=== PATIENT | female | born 1995 | race Caucasian/White ===

== ENCOUNTER 2020-12-09 02:01 | Day surgery (SDC) | payer BC, SELFPAY ==
[2020-12-09] VITALS (15 sets, daily range): BP systolic 108–127; BP diastolic 52–80; PULSE 64–93; RESP 14–18; TEMP 36.3–37.2; O2SAT 96–99; BMI 20.6
--- NOTE | ~2020-12-09 | CT_ITS ---
EXAMINATION: CT ABDOMEN AND PELVIS WITH CONTRAST CLINICAL INFORMATION: Right lower quadrant pain COMPARISON: None TECHNIQUE: Multidetector volumetric images were obtained from the superior aspect of the liver through the pubic symphysis following administration 85 mL of Omnipaque 350 intravenous contrast. Sagittal and coronal reformatted images were obtained on the technologist's workstation. Oral contrast: No This CT examination was performed using dose optimization techniques as appropriate, variously including the following: *Automated exposure control *Adjustment of mA and/or kV according to patient size (this includes techniques or standardized protocols for targeted exams where dose is matched to indication/reason for exam; i.e. extremities or head) *Use of iterative reconstruction technique DLP: 227 mGy-cm FINDINGS: LUNG BASES: The visualized lung bases are unremarkable. LIVER, GALLBLADDER, AND BILIARY TREE: The liver is normal in size, shape, and attenuation. No focal hepatic lesion or biliary ductal dilatation is present. The gallbladder is unremarkable with no evidence of radiopaque gallstones, gallbladder wall thickening, or obvious pericholecystic inflammatory changes. PANCREAS: Unremarkable. SPLEEN: Mildly enlarged, measuring approximately 14 cm in length. ADRENAL GLANDS: Unremarkable. KIDNEYS AND URETERS: The kidneys are normal in size, shape, and attenuation. No hydronephrosis, hydroureter, or obstructing calculi seen. No perinephric stranding. BLADDER: Unremarkable. GASTROINTESTINAL TRACT: The small and large bowel are unremarkable. Fluid-filled structure in the right lower quadrant also containing calcifications is most suggestive of a dilated appendix containing appendicoliths, such as seen on coronal images 28-35. Limited assessment for surrounding inflammatory change given the lack of intra-abdominal fat. No free air is seen. ABDOMINAL WALL: No significant hernia is appreciated. LYMPH NODES: Normal. VASCULAR: Unremarkable. PELVIC VISCERA: IUD is present. Small amount of pelvic free fluid is noted posteriorly. Cystic structure in the right adnexa measures 2.7 cm in diameter, suggestive of an ovarian cyst. OSSEOUS STRUCTURES: Unremarkable. CT/CT abdomen pelvis w con IMPRESSION: 1. Fluid-filled structure in the right lower quadrant which also contains calcification is most suggestive of a dilated appendix. In the setting of right lower quadrant pain, appearance is concerning for acute appendicitis. 2. Suspect right ovarian cyst measuring 2.8 cm. Small amount of pelvic free fluid. 3. Mild splenomegaly.
--- NOTE | 2020-12-09 02:56 | PC.NURSE ---
PT TO ROOM #2 WITH C/O LOWER ABD PAIN. IV PLACED TO LAC, LABS DRAWN TO LAB. PT UP TO RESTROOM FOR URINE SAMPLE TO LAB. PT TOLERATED WELL AND DENIES ANY NAUSEA AT THIS TIME. PT ALERT, RESPIRATIONS EASY, N/L. SKIN W/D. AWAITING FOR FURTHER ORDERS.
[2020-12-09 02:57] LABS: MANUAL DIFF FLAG NO
[2020-12-09 03:03] LABS: Appearance Urine HAZY; Basophils Percent Auto 0.1 % (0-2); Color Urine YELLOW; Eosinophils Percent Auto 0.1 % (0-4); Glucose Urine UA NEG (NEG); Hematocrit 34.2 % (37-47); Hemoglobin 11.9 g/dl (12.0-16.0); Imm Gran Abs Auto 0.05 X10*3/uL (0.00-0.03); Imm Gran Pct Auto 0.4 % (0.0-0.4); Leukocyte Esterase Urine NEG (NEG); Lymphocytes Absolute Auto 1.2 X10*3/uL (1.2-4.9); Lymphocytes Percent Auto 9.3 % (20-40); Mean Corpuscular HGB Conc 34.8 g/dl (31.0-35.0); Mean Corpuscular Hemoglobin 30.7 pg (27.0-33.0); Mean Corpuscular Volume 88.4 fL (80-98); Monocytes Percent Auto 7.8 % (2-11); Neutrophils Absolute Auto 10.9 X10*3/uL (2.0-8.3); Neutrophils Percent Auto 82.3 % (45-73); Nitrite Urine NEG (NEG); Platelet Count 159 X10*3/uL (160-400); Red Blood Count 3.87 X10*6/uL (4.20-5.50); Red Cell Distribution Width 12.4 % (11.0-16.0); Specific Gravity - Urine >= 1.030 (1.005-1.025); Urine Blood NEG (NEG); Urine Ketones 5 MG/DL (NEG); Urine Protein TRACE MG/DL (NEG-TRACE); White Blood Count 13.3 X10*3/uL (4.8-10.8)
[2020-12-09 03:08] LABS: UPreg QC Valid YES; Urine Pregnancy NEGATIVE (NEGATIVE)
[2020-12-09 03:20] LABS: Alanine Aminotransferase 11 U/L (0-31); Albumin Level 4.4 g/dL (3.5-5.0); Alkaline Phosphatase 50 U/L (39-117); Anion Gap 13 (12-20); Aspartate Amino Transferase 14 U/L (5-31); Bilirubin Total 0.3 mg/dL (0.0-1.0); Blood Urea Nitrogen 11 mg/dL (9-16); Calcium 8.9 mg/dL (8.4-10.2); Carbon Dioxide 22 mmol/L (22-29); Chloride 107 mmol/L (96-108); Creatinine Clr Calc Pharmacy 99.1; Estimated Glomerular Filt Rate > 60; Glucose Random 105 mg/dL (60-115); Potassium 3.3 mmol/L (3.3-5.1); Sodium 139 mmol/L (135-145); Total Protein 6.6 g/dL (6.5-8.0)
--- NOTE | 2020-12-09 03:45 | PC.NURSE ---
PT TO CT IN STRETCHER.
[2020-12-09] MEDS: 0.9 % Sodium Chloride 1,000 ML 999 ML IV (03:52)
--- NOTE | 2020-12-09 03:53 | ED_ITS ---
HPI - Abdominal Pain General Chief Complaint: Abdominal Pain Stated Complaint: Abd pain Time Seen by Provider: 12/09/20 03:46 Source: patient Mode of arrival: ambulatory History of Present Illness HPI narrative: 25-year-old female with presentation for cough and sore throat last week and now presents with onset of nausea and vomiting with a few episodes of diarrhea yesterday with right lower quadrant/PT suprapubic pain and denies any urinary pain/burning/frequency. Patient reports chills but denies any fevers. Related Data Allergies Allergy/AdvReac Type Severity Reaction Status Date / Time No Known Allergies Allergy Verified 12/09/20 02:02 Review of Systems Review of Systems Pertinent positives and negatives as stated in HPI 10 point review of systems is otherwise negative. Physical Exam Vital Signs: Vital Signs: Last Vital Signs Temp 98.4 F 12/09/20 04:43 Pulse 76 12/09/20 06:00 Resp 18 12/09/20 06:00 BP 118/78 12/09/20 06:00 Pulse Ox 99 12/09/20 06:00 Body Mass Index 20.6 VITAL SIGNS: Reviewed. GENERAL: Well developed, well nourished, in no acute distress. HEAD: Normocephalic/atraumatic EYES: PERRLA, EOMI EARS: Ext canals without abnormality NOSE: Nares patent bilateral OROPHARYNX: no oral lesions noted, posterior pharynx clear and non-erythematous without noted tonsillar enlargement/erythema/exudates NECK: Supple, no adenopathy LUNGS: Normal breath sounds. No adventitious sounds or accessory muscle use. SpO2<99> CARDIOVASCULAR: Regular rate and rhythm without noted murmurs ABDOMEN: Soft, mild tenderness on palpation over right lower quadrant/suprapubic without rebound, non-distended with bowel sounds, no CVA tenderness SKIN: Inspection of the skin reveals no rashes NEUROLOGIC: Alert and oriented x 4. Course Course Course Narrative: 25-year-old female with history and clinical presentation suggestive possible gastroenteritis, appendicitis, ectopic. On review of all investigations findings are most consistent with acute appendicitis. Discussed case with DR Flores and gave patient 1g Rocephin. MDM - Abdominal Pain Lab Data Result diagrams: 12/09/20 02:42 12/09/20 02:42 Labs: Lab Results 10/19/21 10/19/21 10/19/21 Range/Units 02:42 02:42 02:42 WBC 13.3 H (4.8-10.8) X10*3/uL RBC 3.87 L (4.20-5.50) X10*6/uL Hgb 11.9 L (12.0-16.0) g/dl Hct 34.2 L (37-47) % MCV 88.4 (80-98) fL MCH 30.7 (27.0-33.0) pg MCHC 34.8 (31.0-35.0) g/dl RDW 12.4 (11.0-16.0) % Plt Count 159 L (160-400) X10*3/uL MPV 10.0 (9.4-12.3) fL Immature Gran % (Auto) 0.4 (0.0-0.4) % Neut % (Auto) 82.3 H (45-73) % Lymph % (Auto) 9.3 L (20-40) % [place] % (Auto) 7.8 (2-11) % Eos % (Auto) 0.1 (0-4) % Baso % (Auto) 0.1 (0-2) % Lymph # (Auto) 1.2 (1.2-4.9) X10*3/uL [place] # (Auto) 1.0 (0.1-1.2) X10*3/uL Eos # (Auto) 0.0 (0.0-0.4) X10*3/uL Baso # (Auto) 0.0 (0.0-0.2) X10*3/uL Abs Immat Gran (auto) 0.05 H (0.00-0.03) X10*3/uL Absolute Neuts (auto) 10.9 H (2.0-8.3) X10*3/uL Absolute Nucleated RBC 0.000 (0.0-0.012) X10*3/uL Nucleated RBC % (auto) 0.0 (0.0-0.2) /100WBC Sodium 139 (135-145) mmol/L Potassium 3.3 (3.3-5.1) mmol/L Chloride 107 (96-108) mmol/L Carbon Dioxide 22 (22-29) mmol/L Anion Gap 13 (12-20) BUN 11 (9-16) mg/dL Creatinine 0.76 (0.5-1.4) mg/dL Estim Creat Clear Calc 99.1 Estimated GFR > 60 Random Glucose 105 (60-115) mg/dL Calcium 8.9 (8.4-10.2) mg/dL Total Bilirubin 0.3 (0.0-1.0) mg/dL AST 14 (5-31) U/L ALT 11 (0-31) U/L Alkaline Phosphatase 50 (39-117) U/L Total Protein 6.6 (6.5-8.0) g/dL Albumin 4.4 (3.5-5.0) g/dL Urine Color YELLOW Urine Appearance HAZY Urine pH 6.0 (5.0-8.0) Ur Specific [place] >= 1.030 H (1.005-1.025) Urine Protein TRACE (NEG-TRACE) MG/DL Urine Glucose (UA) NEG (NEG) MG/DL Urine Ketones 5 (NEG) MG/DL Urine Blood NEG (NEG) Urine Nitrite NEG (NEG) Ur Leukocyte Esterase NEG (NEG) Urine Test (NEGATIVE) 12/09/20 Range/Units 02:42 WBC (4.8-10.8) X10*3/uL RBC (4.20-5.50) X10*6/uL Hgb (12.0-16.0) g/dl Hct (37-47) % MCV (80-98) fL MCH (27.0-33.0) pg MCHC (31.0-35.0) g/dl RDW (11.0-16.0) % Plt Count (160-400) X10*3/uL MPV (9.4-12.3) fL Immature Gran % (Auto) (0.0-0.4) % Neut % (Auto) (45-73) % Lymph % (Auto) (20-40) % [place] % (Auto) (2-11) % Eos % (Auto) (0-4) % Baso % (Auto) (0-2) % Lymph # (Auto) (1.2-4.9) X10*3/uL [place] # (Auto) (0.1-1.2) X10*3/uL Eos # (Auto) (0.0-0.4) X10*3/uL Baso # (Auto) (0.0-0.2) X10*3/uL Abs Immat Gran (auto) (0.00-0.03) X10*3/uL Absolute Neuts (auto) (2.0-8.3) X10*3/uL Absolute Nucleated RBC (0.0-0.012) X10*3/uL Nucleated RBC % (auto) (0.0-0.2) /100WBC Sodium (135-145) mmol/L Potassium (3.3-5.1) mmol/L Chloride (96-108) mmol/L Carbon Dioxide (22-29) mmol/L Anion Gap (12-20) BUN (9-16) mg/dL Creatinine (0.5-1.4) mg/dL Estim Creat Clear Calc Estimated GFR Random Glucose (60-115) mg/dL Calcium (8.4-10.2) mg/dL Total Bilirubin (0.0-1.0) mg/dL AST (5-31) U/L ALT (0-31) U/L Alkaline Phosphatase (39-117) U/L Total Protein (6.5-8.0) g/dL Albumin (3.5-5.0) g/dL Urine Color Urine Appearance Urine pH (5.0-8.0) Ur Specific [place] (1.005-1.025) Urine Protein (NEG-TRACE) MG/DL Urine Glucose (UA) (NEG) MG/DL Urine Ketones (NEG) MG/DL Urine Blood (NEG) Urine Nitrite (NEG) Ur Leukocyte Esterase (NEG) Urine Test NEGATIVE (NEGATIVE) Discharge Plan Discharge Clinical Impression: Acute appendicitis Patient Disposition: Admitted As Inpatient [facility] Past Medical History Source: nursing notes reviewed Social History Social History Advance Directives: No Advance Directives Information Provided: Yes Patient : No
--- NOTE | 2020-12-09 04:54 | PC.NURSE ---
NS INFUSED W/O DIFFICULTY, SITE INTACT. PT C/O INCREASING PAIN TO LOWER ABD AREA. PT DENIES FEELING NAUSEATED AT THIS TIME. PT REMAINS ALERT, RESPIRATIONS EASY, N/L. SKIN W/D. WILL CONTINUE TO MONITOR PT.
[2020-12-09] MEDS: Ketorolac Tromethamine 15 MG/ML VIAL IVPUSH (05:14)
--- NOTE | 2020-12-09 05:24 | PC.NURSE ---
PT RATING LOWER ABD PAIN 7/10. AWARE AND ORDERED PAIN MED PER EMAR. WARM BLK PROVIDED FOR PT. PT AWAITING FOR FURTHER ORDERS AND RESTING APPEARING COMFORTABLE. WILL CONTINUE TO MONITOR PT.
[2020-12-09] MEDS: iohexoL 350 MG/ML 100 ML INFUS..BTL 85 ML IV (05:46)
--- NOTE | 2020-12-09 07:57 | P.HPGS_ITS ---
History of Present Illness History of Present Illness Date of Service: 12/09/20 Chief complaint: Abd pain Narrative: Marlene Dewitt is a 25 year old female Presenting with complaints of abdominal pain in the right lower quadrant, nausea, vomiting, and diarrhea which began yesterday. The pain persisted and she subsequently presented to the emergency department for further evaluation. She reports similar pain several years ago she was determined to be an ovarian cyst. She denies any previous medical problems or previous abdominal surgeries. She presented to the emergency department and was noted to be tender in the lower abdomen. Workup with CT of the abdomen and pelvis confirmed a distended appendix, fluid-filled with a fecalith. She is admitted to the surgical service for laparoscopic appendectomy. Review of Systems Review of Systems: Yes all other systems are reviewed and are negative Constitutional: Constitutional: Reports chills and Reports fever(s) Cardiovascular: Cardiovascular: Denies chest pain, Denies rapid heart rate and Denies irregular heart rhythm Respiratory: Respiratory: Reports cough and Denies wheezing Gastrointestinal: Gastrointestinal: Reports as per HPI Allergic/Immunologic: Allergic/Immunologic: Denies wheezing PMFSH Social History Social History Advance Directives: No Advance Directives Information Provided: Yes Patient : No Meds Allergies Allergy/AdvReac Type Severity Reaction Status Date / Time No Known Allergies Allergy Verified 12/09/20 02:02 Active Medications: Current Medications Ceftriaxone Sodium 1 gm/ (Sodium Chloride) 50 mls @ 100 mls/hr IV ONCE ONE Stop: 12/09/20 08:04 Physical Exam Vital Signs: Vital Signs: Last Vital Signs Temp 98.4 F 12/09/20 04:43 Pulse 76 12/09/20 06:00 Resp 18 12/09/20 06:00 BP 118/78 12/09/20 06:00 Pulse Ox 99 12/09/20 06:00 Body Mass Index 20.6 Const: General: healthy appearing and no acute distress Nutritional Appearance: well nourished Orientation/consciousness: patient oriented x3 Limitations: no limitations Resp: Effort & Inspection: normal respiratory effort, not labored and no stridor Cardio: Jugular venous distension: no JVD Rate: regular rate Rhythm: regular rhythm GI: Inspection: Yes normal to inspection Palpation (GI): Soft to palpation and Tenderness to palpation present (GI) in the RLQ, at Burney's point, psoas sign positive and Rovsing's sign positive Percussion: Yes normal to percussion Skin: General skin exam: no rashes or lesions noted Neuro: General: patient oriented x3 Extrem: General: Yes no clubbing, cyanosis or edema Results Results Labs: Short CBC 12/09/20 Range/Units 02:42 WBC 13.3 H (4.8-10.8) X10*3/uL Hgb 11.9 L (12.0-16.0) g/dl Hct 34.2 L (37-47) % Plt Count 159 L (160-400) X10*3/uL BMP 12/09/20 02:42 Sodium 139 Potassium 3.3 Chloride 107 Carbon Dioxide 22 BUN 11 Creatinine 0.76 Calcium 8.9 Liver Function 12/09/20 Range/Units 02:42 Total Bilirubin 0.3 (0.0-1.0) mg/dL AST 14 (5-31) U/L ALT 11 (0-31) U/L Alkaline Phosphatase 50 (39-117) U/L Albumin 4.4 (3.5-5.0) g/dL Urine 12/09/20 12/09/20 Range/Units 02:42 02:42 Urine Color YELLOW Urine Appearance HAZY Urine pH 6.0 (5.0-8.0) Ur Specific [place] >= 1.030 H (1.005-1.025) Urine Protein TRACE (NEG-TRACE) MG/DL Urine Glucose (UA) NEG (NEG) MG/DL Urine Test NEGATIVE (NEGATIVE) Assessment and Plan (1) Acute appendicitis: Status: Acute 25-year-old female presenting with complaints of abdominal pain since yesterday associated with nausea, vomiting, and diarrhea found on CT to have a thickened appendix with a fecalith. On examination she is tender in the right lower quadrant over McBurney's point with a positive Rovsing sign. Findings are suggestive of acute appendicitis. I recommended a laparoscopic or possible open appendectomy and after discussion of the procedure, risks, and alternatives, she consents to the surgery. She has been added onto the operative schedule for today. Quality Stroke Does the patient have a stroke diagnosis?: No VTE Prior VTE?: No VTE Risk Level:: Surgical - low VTE Device Contraindication: N/A - Device Ordered VTE Drug Contraindication: Treatment Not Indicated Procedures Date of Service Date of Service: 12/09/20
[2020-12-09] MEDS: cefTRIAXone sodium 1 GM in 0.9 % Sodium Chloride 50 ML IV (07:58)
[2020-12-09 08:19] LABS: COVID-19 Test Negative (Negative)
--- NOTE | 2020-12-09 10:14 | P.CONAN_ITS ---
[facility] Active Problems Active Problems: All Active Problems (Updated 12/09/20 @ 06:54 by Tammy rodriguez MD) Acute appendicitis (Acute) Past Medical History Functional capacity: independent ambulation Patient : No Family History Family history of problems with anesthesia: No Surgical History History of Problems with Anesthesia: No Social History Social History Patient Tobacco Use Status: Never used Tobacco Second Hand Smoke Exposure: No Use of substances other than those prescribed or required for medical reasons: No Are you DNR?: No Advance Directives: No Advance Directives Information Provided: Yes Advance Directives on File: No Patient : No Meds Allergies Allergy/AdvReac Type Severity Reaction Status Date / Time No Known Allergies Allergy Verified 12/09/20 02:02 Home Medications Medication Instructions Recorded Confirmed Last Taken Type sertraline 100 mg tablet 1 tab PO BID 12/09/20 12/09/20 Unknown History Exam Exam Date and Time: December 09, 2020 1014 Height,Weight and Vital Signs: Height 5 ft 4 in Weight 54.54 kg Last Vital Signs Temp 98.9 F 12/09/20 09:34 Pulse 78 12/09/20 09:34 Resp 16 12/09/20 09:34 BP 123/76 12/09/20 09:34 Pulse Ox 98 12/09/20 09:34 Pertinent Lab Results Pertinent Lab Results: Laboratory Tests 12/09/20 12/09/20 12/09/20 02:42 02:42 02:42 WBC 13.3 H RBC 3.87 L Hgb 11.9 L Hct 34.2 L MCV 88.4 MCH 30.7 MCHC 34.8 RDW 12.4 Plt Count 159 L MPV 10.0 Immature Gran % (Auto) 0.4 Neut % (Auto) 82.3 H Lymph % (Auto) 9.3 L [place] % (Auto) 7.8 Eos % (Auto) 0.1 Baso % (Auto) 0.1 Lymph # (Auto) 1.2 [place] # (Auto) 1.0 Eos # (Auto) 0.0 Baso # (Auto) 0.0 Abs Immat Gran (auto) 0.05 H Absolute Neuts (auto) 10.9 H Absolute Nucleated RBC 0.000 Nucleated RBC % (auto) 0.0 Sodium 139 Potassium 3.3 Chloride 107 Carbon Dioxide 22 Anion Gap 13 BUN 11 Creatinine 0.76 Estim Creat Clear Calc 99.1 Estimated GFR > 60 Random Glucose 105 Calcium 8.9 Total Bilirubin 0.3 AST 14 ALT 11 Alkaline Phosphatase 50 Total Protein 6.6 Albumin 4.4 Urine Color YELLOW Urine Appearance HAZY Urine pH 6.0 Ur Specific [place] >= 1.030 H Urine Protein TRACE Urine Glucose (UA) NEG Urine Ketones 5 Urine Blood NEG Urine Nitrite NEG Ur Leukocyte Esterase NEG Urine Test COVID-19 (KENDELL) COVID-19 [employer] 12/09/20 12/09/20 02:42 07:49 WBC RBC Hgb Hct MCV MCH MCHC RDW Plt Count MPV Immature Gran % (Auto) Neut % (Auto) Lymph % (Auto) [place] % (Auto) Eos % (Auto) Baso % (Auto) Lymph # (Auto) [place] # (Auto) Eos # (Auto) Baso # (Auto) Abs Immat Gran (auto) Absolute Neuts (auto) Absolute Nucleated RBC Nucleated RBC % (auto) Sodium Potassium Chloride Carbon Dioxide Anion Gap BUN Creatinine Estim Creat Clear Calc Estimated GFR Random Glucose Calcium Total Bilirubin AST ALT Alkaline Phosphatase Total Protein Albumin Urine Color Urine Appearance Urine pH Ur Specific [place] Urine Protein Urine Glucose (UA) Urine Ketones Urine Blood Urine Nitrite Ur Leukocyte Esterase Urine Test NEGATIVE COVID-19 (KENDELL) Negative COVID-19 [employer] See Note Airway Mallampati Class: I TM Dist: >3cm Neck ROM: Full Heart: RRR Lungs: CTA Assessment and Plan Final Anesthetic Review Family History of Problems with Anesthesia: No History of Problems with Anesthesia: No
--- NOTE | 2020-12-09 11:51 | P.OP_ITS ---
Operative Note Operative Note Date of Service: 12/09/20 Narrative: Preoperative diagnosis: Acute appendicitis Postoperative diagnosis: Same Procedure: Laparoscopic appendectomy Surgeon: Nolan Flores MD Protective Services Officer:EUGENE Mclaughlin Anesthesia: General endotracheal Indications for procedure: 25-year-old female patient presenting with complaints of abdominal pain in the right lower quadrant associated with nausea vomiting, diarrhea found to have acute appendicitis by CT abdomen and pelvis. Operative findings: Acute appendicitis which ruptured upon stapling the stump. Specimen: Appendix Estimated blood loss: 2 mL Complications: None Procedure details: Patient was brought to the OR and placed in a supine position. After administering general anesthesia the patient's abdomen was prepped with ChloraPrep and draped in a sterile fashion. A surgical time-out was called and consent confirmed. Patient received preoperative antibiotics and Venodyne boots were in place. Local anesthesia consisting of 0.5% Sensorcaine without epinephrine was infiltrated in periumbilical region. A 5 mm incision was made below the umbilicus and carried down through subcutaneous tissue. A Veress needle was then inserted while elevating abdominal cavity with towel clips. After a positive drop test the abdomen was insufflated to a pressure of 15 mm of mercury. The Veress needle was removed and a 5 mm trocar inserted. The camera was then inserted in the abdomen explored. A 2nd 5 mm trocars placed in the lower midline. A 12 mm trocar was then placed in the left lower quadrant. The patient was then placed in a Trendelenburg position and rotated to the left. Omental adhesions were noted in to the pelvis obscuring the right lower quadrant. These were divided using the LigaSure. The appendix was identified in the right lower quadrant and brought up using blunt dissecting clamps. The mesentery of the appendix was then divided using the LigaSure. The appendiceal artery was cauterized and divided using the LigaSure. Dissection was continued down to the base of the cecum. An Endo-VIRGIE stapler with a purple reload was then used to divide the appendix at the base with the cecum. Upon stapling the appendix a small amount of pus drained from the tip of the appendix. This was evacuated using the endoscopic suction and ball thread machine tender. Appendix was then placed in Endo-Catch bag and brought out through the left lower quadrant incision. The abdomen was then irrigated with saline solution and suctioned dry. Wounds were checked for hemostasis. CO2 was then evacuated from the abdominal cavity and all trocars removed. Fascia was closed in the left lower quadrant incision using a [id number] 0 Polysorb suture. Skin was closed at all incisions using a subcuticular 4-0 Polysorb suture. Steri-Strips 2 x 2 gauze and Tegaderm were then applied. The patient tolerated the procedure well. Sponge, instrument, needle counts reported as correct. The patient was transferred to PACU in stable condition.
[2020-12-09] MEDS: Dextrose 5 % and Lactated Ring 1,000 ML 125 ML IVCONT ×2 (14:41→22:25)
[2020-12-09] MEDS: oxyCODONE HCl Immed Release 5 MG TABLET PO ×3 (14:43→23:40)
--- NOTE | 2020-12-09 15:22 | MHC.CM.PN ---
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 PT OFFERED ASSISTANCE TO COMPLETE HCP AND DECLINES AT THIS TIME. D/C PLAN: HOME SELF-CARE 12/10/20, PT'S MOTHER TO TRANSPORT
[2020-12-09] MEDS: Acetaminophen 325 MG TABLET 650 MG PO (18:27)
[2020-12-09] MEDS: Sertraline HCL 100 MG TABLET PO (19:07)
[2020-12-10 04:00] VITALS: BP 111/62; PULSE 70; RESP 16; TEMP 36.4; O2SAT 99
[2020-12-10] MEDS: oxyCODONE HCl Immed Release 5 MG TABLET PO ×2 (05:00→08:51)
[2020-12-10] MEDS: Dextrose 5 % and Lactated Ring 1,000 ML 125 ML IVCONT (05:01)
[2020-12-10] MEDS: Sertraline HCL 100 MG TABLET PO (07:14)
[2020-12-10 07:19] VITALS: BP 124/80; PULSE 67; RESP 17; TEMP 36.1; O2SAT 98
--- NOTE | 2020-12-10 08:29 | PC.NURSE ---
Skin assessment completed. Patient has 2 small surgical incisions from a Lap Izabella. Dressings C/D/I. No other skin issues noted at this time.
--- NOTE | 2020-12-10 08:47 | PM.PNGS ---
Subjective Subjective Date of Service: 12/10/20 Interval history: Patient with some soreness in the abdominal incisions but feels improved, She tolerated her diet and denies nausea. Physical Exam Vital Signs: Vital Signs: Last Vital Signs Temp 97.0 F 12/10/20 07:19 Pulse 67 12/10/20 07:19 Resp 17 12/10/20 07:19 BP 124/80 12/10/20 07:19 Pulse Ox 98 12/10/20 07:19 Body Mass Index 20.6 Const: General: healthy appearing and no acute distress Nutritional Appearance: well nourished Orientation/consciousness: patient oriented x3 Limitations: no limitations Resp: Effort & Inspection: normal respiratory effort GI: Inspection: Yes normal to inspection Palpation (GI): Soft to palpation, nontender, no guarding and not rigid Skin: General skin exam: no rashes or lesions noted Neuro: General: patient oriented x3 Extrem: General: Yes no clubbing, cyanosis or edema Procedures Date of Service Date of Service: 12/10/20 Progress Note: A&P Assessment and plan (1) Acute appendicitis: Status: Acute Assessment and Plan: Patient feels improved today following laparoscopic appendectomy POD #1. She is tolerating po without nausea or vomiting. She feels ready for discharge. Will discharge to home with follow up in the office in one week. No lifting > 10 pounds for 2 weeks. Fall Risk Details Current Medications: Current Medications Acetaminophen (Acetaminophen 325 Mg Tablet) 650 mg PO Q6H PRN PRN Reason: Pain, Mild (Pain Scale 1-3) Last Admin: 12/09/20 18:27 Dose: 650 mg Documented by: Dextrose/Lactated Ringer's ([email or web address]) 1,000 mls @ 125 mls/hr IVCONT .Q8H FERNANDA Last Admin: 12/10/20 05:01 Dose: 125 mls/hr Documented by: Morphine Sulfate (Morphine Sulfate 2 Mg/Ml Cartridge) 2 mg IVPUSH Q2H PRN; Protocol PRN Reason: Pain, Severe (Pain Scale 7-10) Ondansetron HCl (Ondansetron Hcl 4 Mg/2 Ml Vial) 4 mg IVPUSH Q8H PRN PRN Reason: Nausea Oxycodone HCl (Oxycodone Hcl Immed Release 5 Mg Tablet) 5 mg PO Q4H PRN PRN Reason: Pain, Moderate (Pain Scale 4-6 Last Admin: 12/10/20 05:00 Dose: 5 mg Documented by: Sertraline HCl (Sertraline Hcl 100 Mg Tablet) 100 mg PO BID FERNANDA Last Admin: 12/10/20 07:14 Dose: 100 mg Documented by: Time Spent With Patient Time: Total time spent is greater than 50% in coordination of care (as documented) at patient's floor/unit and/or counseling patient: Time with patient: 15 - 24 minutes Quality Stroke Does the patient have a stroke diagnosis?: No VTE Prior VTE?: No VTE Risk Level:: Surgical - low VTE Device Contraindication: N/A - Device Ordered VTE Drug Contraindication: Treatment Not Indicated
--- NOTE | 2020-12-10 08:48 | PM.DS ---
DS: Providers Provider Date of Service: 12/10/20 Date of admission: 12/09/2020 Date of discharge: 12/10/20 Primary care physician: Unknown Physician Admitting clinician: Nolan Flores Discharging clinician: Nolan Flores DS: Diagnosis Discharge Diagnosis (1) Acute appendicitis: Status: Acute DS: Summary Hospital Course Hospital Course: Marlene Dewitt is a 25 year old female Presenting with complaints of abdominal pain in the right lower quadrant, nausea, vomiting, and diarrhea which began yesterday.? The pain persisted and she subsequently presented to the emergency department for further evaluation.? She reports similar pain several years ago she was determined to be an ovarian cyst.? She denies any previous medical problems or previous abdominal surgeries.? She presented to the emergency department and was noted to be tender in the lower abdomen.? Workup with CT of the abdomen and pelvis confirmed a distended appendix, fluid-filled with a fecalith.? She is admitted to the surgical service for laparoscopic appendectomy. On examination she was found to be tender in the right lower quadrant over McBurney's point. Findings were consistent with acute appendicitis. After discussion of the procedure, risks, and alternatives, she consented to a laparoscopic or possible open cholecystectomy. She was taken to the operating room on the day of admission for a laparoscopic appendectomy. Operative findings were consistent with acute appendicitis. She underwent an uneventful laparoscopic appendectomy and was transferred to PACU in stable condition. On postoperative day 1 patient felt more comfortable without nausea, vomiting, fever, or chills. She had incisional tenderness but her wounds were clean, dry, and intact. She tolerated regular diet without nausea or vomiting. Patient is to be discharged to home. She should avoid lifting greater than 10 lb for the next 2 weeks. She may resume regular diet as tolerated. She should follow up in my office in approximately 1 week for wound examination. She was encouraged to call for fever, chills, nausea, vomiting, or increased abdominal pain. Time Spent with Patient Time attestation: Total time spent providing and/or coordinating discharge services: Discharge coordination time: Less than 30 minutes Quality: Stroke Does the patient have a stroke diagnosis?: No Physical Exam Vital Signs: Vital Signs: Last Vital Signs Temp 97.0 F 12/10/20 07:19 Pulse 67 12/10/20 07:19 Resp 17 12/10/20 07:19 BP 124/80 12/10/20 07:19 Pulse Ox 98 12/10/20 07:19 Body Mass Index 20.6 Const: General: comfortable, no acute distress and well developed Nutritional Appearance: well nourished Orientation/consciousness: patient oriented x3 Limitations: no limitations Resp: Effort & Inspection: normal respiratory effort GI: Other: Soft and nondistended, well-healed trocar incisions Skin: General skin exam: no rashes or lesions noted Neuro: General: patient oriented x3 Extrem: General: Yes no clubbing, cyanosis or edema DS: Data Data Completed and Pending Pending studies at discharge: Pending at discharge 12/09/20 11:43 Surgical [PTH] Routine Discharge Plan Discharge Patient Disposition: Home, Self-Care Referrals: Nolan Flores MD [Physician] - 1 Week PhysicianHarman [Primary Care Provider] - 1 Week Discharge Medications: New oxycodone 5 mg Tablet 5 mg PO Q6H PRN (Reason: pain) 7 Days Qty: 15 RF: 0 Continued sertraline 100 mg tablet 1 tab PO BID RF: 0 Discharge Orders: Discharge Order (Routine); Ordered 12/10/20 Ordered By: Nolan Flores Patient Instructions: Laparoscopic Appendectomy (DC) Activity Restrictions/Additional Instructions: No lifting > 10 pounds for 2 weeks No driving for one week Ice to the incision x 24 hours Remove dressing in 3 days Follow up in office in one week. Discharge Date/Time: 12/10/20 10:21
[2020-12-10] MEDS: Acetaminophen 325 MG TABLET 650 MG PO (08:51)
--- NOTE | 2020-12-10 09:12 | MHC.CM.PN ---
PT DISCHARGING HOME SELF-CARE W/OUPT FOLLOW-UP W/DR TERAN, OT'S MOTHER FOR TRANSPORT.
== END 2020-12-10 10:21 | disposition home or self-care (01) ==
LOC: HO.ED 07:44 → HO.EDOVER 09:31 → HO.SSS 13:20 → HO.S3 13:45
PROVIDERS: Surgery; Visit Provider Student in an Organized Health Care Education/Training Program
PROC: 0DTJ4ZZ Resection of Appendix, Percutaneous Endoscopic Approach (ICD-10-PCS; CPT 44970; principal; 2020-12-09 10:30)
DX: K35.80 Unspecified acute appendicitis (principal); K66.0 Peritoneal adhesions (postprocedural) (postinfection)
CPT/HCPCS: 44970; 36415; 74177; 80053; 81003; 81025; 85025; 87635; 88304; 99024; J0696; J1100; J1885; J2250; J2405; J3010; Q9967

== ENCOUNTER → 2020-12-23 09:51 | Outpatient (BNVA) | payer BC, SELFPAY | PROVIDERS: Visit Provider Surgery ==